=== PATIENT | male | born 1990 | race African-American/Black ===

== ENCOUNTER 2024-12-26 08:28 | Emergency (ER) | payer OTHER, SELFPAY ==
[2024-12-26] VITALS (14 sets, daily range): BP systolic 106–151; BP diastolic 59–80; PULSE 63–87; RESP 16–158; TEMP 36.6–36.9; O2SAT 95–99; BMI 38.2
[2024-12-26 08:53] LABS: Add Manual Diff / Slide Review NO; Basophils Absolute Auto 100 /uL (0-100); Eosinophils Absolute Auto 0 /uL (0-450); Eosinophils Percent Auto 0.8 % (2-4); Hematocrit 42.9 % (41-53); Hemoglobin 14.5 g/dL (13.5-17.5); Lymphocytes Absolute Auto 1500 /uL (1100-4500); Lymphocytes Percent Auto 27.7 % (25-40); Mean Corpuscular HGB Conc 33.8 % (30-36); Mean Corpuscular Hemoglobin 30.7 PG (26-34); Mean Corpuscular Volume 90.7 fL (80-100); Monocytes Absolute Auto 400 /uL (0-900); Monocytes Percent Auto 6.7 % (3-14); Neutrophils Absolute Auto 3400 /uL (1500-7000); Neutrophils Percent Auto 63.8 % (50-75); Platelet Count 221 X10^3/uL (150-400); Red Blood Cell Count 4.72 X10^6/uL (4.5-5.9); Red Cell Distribution Width 13.4 % (11.6-14.8); White Blood Cell Count 5.3 X10^3/uL (4.5-11.0)
[2024-12-26 09:07] LABS: Alanine Aminotransferase 46 IU/L (<50); Albumin 4.8 g/dL (3.5-5.0); Albumin Globulin Ratio 1.3 (1.0-2.8); Alkaline Phosphatase 53 U/L (38-126); Aspartate Aminotransferase 51 IU/L (17-59); BUN Creatinine Ratio 12.3 (6-22); Bilirubin Total 0.9 mg/dL (0.2-1.3); Blood Urea Nitrogen 13 mg/dL (9-20); Calcium 9.2 mg/dL (8.4-10.2); Carbon Dioxide 28 mmol/L (22-32); Chloride 103 mmol/L (98-107); Estimated Glomerular Filt Rate > 60 mL/min (>60); Globulin 3.7 g/dL (1.7-4.1); Glucose 91 mg/dL (70-99); HEMOLYSIS 37 (0-50); Lipase 100 U/L (23-300); Potassium 4.1 mmol/L (3.4-5.1); Sodium 141 mmol/L (137-145); Total Protein 8.5 g/dL (6.3-8.2)
--- NOTE | 2024-12-26 10:00 | ED.NAVMDI ---
HPI - Nausea/Vomiting/Diarrhea General Chief complaint: Nausea/Vomiting/Diarrhea Stated complaint: N/V/D X 2 days Time Seen by Provider: 12/26/24 09:59 Source: patient, RN notes reviewed and old records reviewed Mode of arrival: Ambulatory Limitations: no limitations History of Present Illness HPI Narrative: 34-year-old male history of prior laparoscopic umbilical hernia repair with mesh he was had some persistent abdominal pain and nausea had upper endoscopy in the last several months states was normal except for maybe some discoloration in his scheduled to have a colonoscopy in the future. Patient states he has had some increased abdominal discomfort for the past week, he was noted increased nausea as well. Patient states no fevers. No chest pain or pressure. Did has a little bit of reflux with a sour taste in his mouth this morning. Notes had nausea with a little bit of dry heaves and took some ondansetron at home. States he has been mildly constipated the past week but had some diarrhea like stools 3 times overnight. No black or bloody stools. Describes pain sort of periumbilical without radiation. No pain in his back or flank. Denies dysuria urgency or frequency. No testicular pain. States similar to his prior episodes. Patient states he was on Wegovy, taking Pepcid daily and ondansetron PRN. States he had prior laparoscopic umbilical hernia repair with mesh, denies any other abdominal surgeries. Denies any drug allergies. No tobacco, rare alcohol, no recreational drugs. Patient has av medical in the last several days. Related Data Allergies Allergy/AdvReac Type Severity Reaction Status Date / Time No Known Drug Allergies Allergy Verified 12/26/24 08:37 Review of Systems Review of Systems ROS Unobtainable: All systems reviewed & are unremarkable except as noted in HPI and below Exam Narrative Exam Narrative: GENERAL: Alert and oriented x three, male in mild distress HEENT: Head normocephalic, atraumatic, EOMI, pupils reactive, face symmetric, moist mucous membranes NECK: Supple, full range of motion CARDIOVASCULAR: Regular rate and rhythm without murmurs, rubs or gallops. RESPIRATORY: Breath sounds equal bilaterally, no wheezes rales or rhonchi. ABDOMEN: Soft, nondistended. Patient has some mild tenderness periumbilical, normoactive bowel sounds all 4 quadrants. No guarding or rebound, rigidity, no mass, no palpable hernias on exam. : No CVA tenderness bilaterally EXTREMITIES: Normal range of motion, no clubbing or edema. Neurovascularly intact NEUROLOGICAL: Cranial nerves II through XII grossly intact. Moving all extremities SKIN: Warm, dry, no petechiae, no rashes or lesions. Initial Vital Signs Initial Vital Signs: Vital Signs Pulse Oximetry 98 12/26/24 08:32 Course Orders Ordered: Discontinued Medications Sodium Chloride (Normal Saline 0.9%) 1,000 mls @ 1,000 mls/hr IV BOLUS ONE Stop: 12/26/24 11:09 Last Infusion: 12/26/24 12:07 Dose: Infused Documented By: Admin: 12/26/24 10:34 Dose: 1,000 mls/hr Documented By: LM Ketorolac Tromethamine (Ketorolac 30 Mg/Ml Vial) 15 mg IV NOW ONE Stop: 12/26/24 10:10 Last Admin: 12/26/24 10:33 Dose: 15 mg Documented By: LM Ondansetron HCl (Ondansetron 4 Mg/2 Ml Inj) 4 mg IV NOW PRN PRN Reason: Nausea And Vomiting Ondansetron HCl (Ondansetron 4 Mg Odt) 4 mg PO NOW PRN PRN Reason: Nausea And Vomiting Vital Signs Vital signs: Vital Signs - 8 hr 12/26/24 08:32 12/26/24 08:33 12/26/24 08:33 Temperature Pulse Rate 85 Respiratory Rate Blood Pressure 136/80 Pulse Oximetry 98 98 Oxygen Delivery Method 12/26/24 08:37 12/26/24 08:54 12/26/24 08:54 Temperature 97.8 F Pulse Rate 87 75 Respiratory Rate 16 Blood Pressure 136/80 117/64 Pulse Oximetry 97 98 Oxygen Delivery Method Room Air 12/26/24 09:00 12/26/24 09:00 12/26/24 09:30 Temperature Pulse Rate 71 79 Respiratory Rate Blood Pressure 115/63 Pulse Oximetry 95 97 Oxygen Delivery Method 12/26/24 09:30 12/26/24 10:00 12/26/24 10:00 Temperature Pulse Rate 69 Respiratory Rate Blood Pressure 106/61 107/59 L Pulse Oximetry 98 Oxygen Delivery Method 12/26/24 10:22 12/26/24 10:22 12/26/24 10:30 Temperature Pulse Rate 76 Respiratory Rate Blood Pressure 151/74 H 148/70 H Pulse Oximetry 98 Oxygen Delivery Method 12/26/24 10:30 Temperature Pulse Rate 68 Respiratory Rate Blood Pressure Pulse Oximetry 99 Oxygen Delivery Method MDM - Nausea/Vomiting/Diarrhea Lab Data 12/26/24 08:43 12/26/24 08:43 Labs: Lab Results 12/26/24 Range/Units 08:43 WBC 5.3 (4.5-11.0) X10^3/uL RBC 4.72 (4.5-5.9) X10^6/uL Hgb 14.5 (13.5-17.5) g/dL Hct 42.9 (41-53) % MCV 90.7 (80-100) fL MCH 30.7 (26-34) PG MCHC 33.8 (30-36) % RDW 13.4 (11.6-14.8) % Plt Count 221 (150-400) X10^3/uL Neut % (Auto) 63.8 (50-75) % Lymph % (Auto) 27.7 (25-40) % [place] % (Auto) 6.7 (3-14) % Eos % (Auto) 0.8 L (2-4) % Baso % (Auto) 1.0 (0-2) % Neut # (Auto) 3400 (6837-3714) /uL Lymph # (Auto) 1500 (2656-4517) /uL [place] # (Auto) 400 (0-900) /uL Eos # (Auto) 0 (0-450) /uL Baso # (Auto) 100 (0-100) /uL Sodium 141 (137-145) mmol/L Potassium 4.1 (3.4-5.1) mmol/L Chloride 103 (98-107) mmol/L Carbon Dioxide 28 (22-32) mmol/L BUN 13 (9-20) mg/dL Creatinine 1.06 (0.66-1.25) mg/dL Estimated GFR > 60 (>60) mL/min BUN/Creatinine Ratio 12.3 (6-22) Glucose 91 (70-99) mg/dL Calcium 9.2 (8.4-10.2) mg/dL Total Bilirubin 0.9 (0.2-1.3) mg/dL AST 51 (17-59) IU/L ALT 46 (<50) IU/L Alkaline Phosphatase 53 (38-126) U/L Total Protein 8.5 H (6.3-8.2) g/dL Albumin 4.8 (3.5-5.0) g/dL Globulin 3.7 (1.7-4.1) g/dL Albumin/Globulin Ratio 1.3 (1.0-2.8) Lipase 100 (23-300) U/L Urine Dip Bedside Urine Glucose Negative Bedside Urine Bilirubin - Negative Bedside Urine Ketone - Negative Urine Specific [place] 1.010 Bedside Urine Occult Blood - Negative Bedside Urine pH 7 Bedside Urine Protein - Negative Bedside Urine Urobilinogen - Negative Bedside Urine Nitrite - Negative Bedside Urine Leukocytes - Negative Esterase MDM Narrative Medical decision making narrative: CBC shows normal white count hemoglobin and platelets, chemistries chemistries are normal, total protein is 8.5. Point of care urine is negative CT abdomen pelvis no acute intra-abdominal abnormalities no significant abnormality along the anterior abdominal wall. Diastasis rectus is present. Patient fluids, and Toradol. 34-year-old male with a acute on chronic abdominal pain, patient is mildly tender on exam but in the area of his prior hernia repair. I do not palpate any obvious hernias but has had some nausea vomiting and diarrhea in the last 24 hours concern for potential obstructive causes patient has had acute on chronic pain worsening for the past week and after discussion felt CT abdomen pelvis was appropriate. Workup shows Discharge Plan Departure Patient Disposition: Home Clinical Impression: Abdominal pain, Nausea Instructions: DI for Abdominal Pain-Adult Activity Restrictions/Additional Instructions: Follow up with your primary care, I do think you would benefit from having your colonoscopy moved up if they are able to perform this sooner. Contacts included below for local general surgery who also do colonoscopies here at the hospital. Your labs and CT imaging did not show any major changes today. The only noted change was you have a diastasis recti on your imaging. Continue with a ondansetron 4 mg every 6 hours as needed. Please return for fevers, worsening abdominal back or flank pain, persistent vomiting, black or bloody stools, if you are not having any bowel movements or flatus vomiting present, passing out or other new or concerning changes. Referrals: Provider,Jose MONTIEL [Primary Care Provider, Family Practice] Brendon Mayes MD [Physician, General Surgery] Stand Alone Forms: Patient Portal/API, Work Release Note
--- NOTE | 2024-12-26 10:09 | DI.CT.S_ITS ---
PROCEDURE: CT ABDOMEN PELVIS W CON INDICATIONS: acute on chronic periumibilical, n/v/d, hx hernia/mesh repair TECHNIQUE: After the administration of intravenous contrast, axial sections acquired from the lung bases to the pubic symphysis. Coronal and sagittal reformats were performed. For radiation dose reduction, the following was used: automated exposure control, adjustment of mA and/or kV according to patient size. COMPARISON: None. FINDINGS: Image quality: Diagnostic. Lower Chest: No significant findings. ABDOMEN: Liver: No solid mass. Gallbladder: No radiopaque gallstones or wall thickening. Biliary ducts: No biliary dilation. Pancreas: No ductal dilation. Spleen: Size is within normal limits. Adrenal Glands: No adrenal nodules. Kidneys and Ureters: No hydronephrosis. No solid mass. No complex renal cystic lesion which requires follow up. Stomach and Bowel: Normal colonic caliber, without significant wall thickening. Normal appendix. Peritoneum: No abnormal intraperitoneal fluid. No free air. Ventral Wall: No significant ventral hernia. Diastasis rectus is present. Abdominal Nodes: No retroperitoneal or mesenteric adenopathy by size criteria. Vessels: Aorta and inferior vena cava are normal in size. PELVIS: Pelvic Organs: Unremarkable. Bladder: No bladder wall thickening, accounting for underdistention. Pelvic Nodes: No enlarged lymph nodes. Miscellaneous: No inguinal hernias are seen. Bones: No aggressive osseous abnormality. IMPRESSION: No acute intra-abdominal abnormalities. No significant abnormality along the anterior abdominal wall. Dictated by: Sam Menard M.D. on 12/26/2024 at 11:17 Approved by: Sam Menard M.D. on 12/26/2024 at 11:25
[2024-12-26] MEDS: KETOROLAC 30 MG/ML VIAL 15 MG IV (10:33)
[2024-12-26] MEDS: SODIUM CHLORIDE 0.9% 1,000 ML 1000 ML IV (10:34)
== END 2024-12-26 12:14 | disposition home or self-care (01) ==
PROVIDERS: Emergency Provider Emergency Medicine
DX: R10.9 Unspecified abdominal pain (principal); R11.0 Nausea
CPT/HCPCS: 36415; 74177; 80053; 81003; 83690; 85025; 96361; 96374; 99284; J1885; Q9967

== ENCOUNTER → 2025-02-02 07:11 | Outpatient (CLI) | payer OTHER, SELFPAY ==
--- NOTE | 2025-02-02 07:14 | DI.MRI.S_ITS ---
PROCEDURE: MR HEAD/BRAIN WO CON INDICATIONS: MIGRAINS TECHNIQUE: Noncontrast axial T1 spin echo, axial T2 fast spin echo, sagittal and axial FLAIR, coronal T2 fast spin echo, axial gradient echo, axial diffusion and ADC through the brain. COMPARISON: None. FINDINGS: Image quality: Diagnostic. CSF Spaces: Basal cisterns are patent. No extra-axial fluid collections. Ventricles are normal in size and shape. Brain: No intracranial masses or hemorrhage. Ro/white matter interface is normal. Brainstem appears normal. Diffusion-weighted images demonstrate no acute infarct. No chronic ischemic insults. Normal intravascular flow voids are present. Skull and face: Calvarium has normal marrow signal. Orbits appear normal. Sinuses: Sinuses and mastoids are clear. IMPRESSION: Unremarkable MRI evaluation of brain without acute intracranial abnormalities. No evidence for mass or mass effect. Dictated by: Mayo Naranjo M.D. on 02/02/2025 at 22:50 Approved by: Mayo Naranjo M.D. on 02/02/2025 at 22:51
== END ==
LOC: MRI 07:12
PROVIDERS: Referring Provider Nurse Practitioner Family; Visit Provider Nurse Practitioner Family
DX: R51.9 Headache, unspecified (principal)
CPT/HCPCS: 70551

== ENCOUNTER 2025-02-10 08:00 | Emergency (ER) | payer OTHER, SELFPAY ==
[2025-02-10] VITALS (12 sets, daily range): BP systolic 112–132; BP diastolic 60–74; PULSE 56–78; RESP 16; TEMP 36.6; O2SAT 97–100; BMI 38.7
--- NOTE | 2025-02-10 08:23 | EKG_ITS ---
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
[2025-02-10 08:32] LABS: Add Manual Diff / Slide Review NO; Hematocrit 43.0 % (41-53); Hemoglobin 14.3 g/dL (13.5-17.5); Lymphocytes Absolute Auto 1900 /uL (1100-4500); Mean Corpuscular HGB Conc 33.3 % (30-36); Mean Corpuscular Hemoglobin 30.3 PG (26-34); Mean Corpuscular Volume 90.9 fL (80-100); Platelet Count 242 X10^3/uL (150-400)
[2025-02-10 08:53] LABS: Alanine Aminotransferase 36 IU/L (<50); Albumin 4.7 g/dL (3.5-5.0); Albumin Globulin Ratio 1.3 (1.0-2.8); Alkaline Phosphatase 64 U/L (38-126); Blood Urea Nitrogen 16 mg/dL (9-20); Calcium 9.3 mg/dL (8.4-10.2); Carbon Dioxide 31 mmol/L (22-32); Chloride 103 mmol/L (98-107); Estimated Glomerular Filt Rate > 60 mL/min (>60); Globulin 3.5 g/dL (1.7-4.1); Glucose 86 mg/dL (70-99); HEMOLYSIS < 15 (0-50); Lipase 68 U/L (23-300); Potassium 3.8 mmol/L (3.4-5.1); Sodium 140 mmol/L (137-145); Total Protein 8.2 g/dL (6.3-8.2)
--- NOTE | 2025-02-10 09:30 | ED_ITS ---
HPI - Abdominal Pain General Chief Complaint: Abdominal Pain Stated Complaint: nausea, vomiting, abd pain Time Seen by Provider: 02/10/25 08:20 Source: patient Mode of arrival: Ambulatory History of Present Illness HPI narrative: 34-year-old male history of prior laparoscopic umbilical hernia repair with mesh he was had some persistent abdominal pain and nausea had upper endoscopy in the last several months states was normal except for maybe some discoloration in his scheduled to have a colonoscopy in the future. Patient states he has had some increased abdominal discomfort for the past month, he was noted increased nausea as well. Patient states no fevers. No chest pain or pressure. Did has a little bit of reflux with a sour taste in his mouth this morning. Notes had nausea with a little bit of dry heaves and took some ondansetron at home. States he has been mildly constipated the past week but had some diarrhea like stools 3 times overnight. No black or bloody stools. Describes pain sort of periumbilical without radiation. No pain in his back or flank. Denies dysuria urgency or frequency. No testicular pain. States similar to his prior episodes. Patient states he was on Wegovy, taking Pepcid daily and ondansetron PRN. States he had prior laparoscopic umbilical hernia repair with mesh, denies any other abdominal surgeries. Denies any drug allergies. No tobacco, rare alcohol, no recreational drugs. Patient has av medical in the last several days. He was seen in this ED approximately a month and a half ago with the exact same symptoms. Diastasis recti was the only results of the workup. Related Data Previous Rx's ?Medication ?Instructions ?Recorded cyclobenzaprine 7.5 mg tablet 7.5 mg PO TID PRN muscle spasm #20 02/10/25 tabs ondansetron 4 mg disintegrating 4 mg PO Q6H PRN nausea and 02/10/25 tablet vomiting #30 tabs Allergies Allergy/AdvReac Type Severity Reaction Status Date / Time No Known Drug Allergies Allergy Verified 02/10/25 08:10 Review of Systems Review of Systems ROS Unobtainable: All systems reviewed & are unremarkable except as noted in HPI and below Patient History Social History Smoking Status: Never smoker Smoking Status: Never smoker Exam Narrative Exam Narrative: General: Patient appears to be in no acute distress, acting appropriately Head: normocephalic, atraumatic, HEENT: Pupils equal round reactive, eyes tracking well, neck supple, no JVD Heart: regular rate and rhythm, no murmurs, rubs, or gallops heard Lungs: clear to auscultation, no adventitious sounds Abdomen: soft , midly tender to generalized palpation , nondistended, positive bowel sounds Neurological: no focal neurological signs, moving all extremities well, alert and oriented x3, Psych: good judgment ,good insight, mood is normal. Initial Vital Signs Initial Vital Signs: Vital Signs Pulse Rate 71 02/10/25 08:09 Respiratory Rate 16 02/10/25 08:09 Blood Pressure 132/70 02/10/25 08:09 Pulse Oximetry 97 02/10/25 08:09 Oxygen Delivery Method Room Air 02/10/25 08:09 Course Course Course Narrative: Patient feeling a little better after some Toradol and Zofran. Orders Ordered: ED Orders 02/10/25 08:16 EKG-12 Lead Stat 02/10/25 08:25 Complete Blood Count AUTO DIFF Stat Comprehensive Metabolic Panel Stat Lipase Stat 02/10/25 09:39 CT abdomen pelvis w con Stat Ondansetron HCl (Ondansetron 4 Mg/2 Ml Inj) 4 mg IV NOW PRN PRN Reason: Nausea And Vomiting Ondansetron HCl (Ondansetron 4 Mg Odt) 4 mg PO NOW PRN PRN Reason: Nausea And Vomiting Discontinued Medications Ketorolac Tromethamine (Ketorolac 30 Mg/Ml Vial) 15 mg IV NOW ONE Stop: 02/10/25 10:27 Last Admin: 02/10/25 10:41 Dose: 15 mg Documented By: Ondansetron HCl (Ondansetron 4 Mg/2 Ml Inj) 4 mg IV NOW ONE Stop: 02/10/25 10:27 Last Admin: 02/10/25 10:40 Dose: 4 mg Documented By: Vital Signs Vital signs: Vital Signs - 8 hr 02/10/25 08:09 02/10/25 08:39 02/10/25 08:40 Pulse Rate 71 76 68 Respiratory Rate 16 Blood Pressure 132/70 Pulse Oximetry 97 97 99 Oxygen Delivery Method Room Air 02/10/25 08:40 02/10/25 09:00 02/10/25 09:00 Pulse Rate 61 Respiratory Rate Blood Pressure 129/70 122/69 Pulse Oximetry 100 Oxygen Delivery Method 02/10/25 09:30 02/10/25 09:31 02/10/25 09:31 Pulse Rate 65 68 Respiratory Rate Blood Pressure 130/74 Pulse Oximetry 100 100 Oxygen Delivery Method MDM - Abdominal Pain Differential Diagnosis Differential diagnosis: Likely abdominal pain, diverticulitis, small bowel obstruction and other Lab Data 02/10/25 08:25 02/10/25 08:25 Labs: Lab Results 02/10/25 Range/Units 08:25 WBC 5.5 (4.5-11.0) X10^3/uL RBC 4.72 (4.5-5.9) X10^6/uL Hgb 14.3 (13.5-17.5) g/dL Hct 43.0 (41-53) % MCV 90.9 (80-100) fL MCH 30.3 (26-34) PG MCHC 33.3 (30-36) % RDW 13.2 (11.6-14.8) % Plt Count 242 (150-400) X10^3/uL Neut % (Auto) 54.4 (50-75) % Lymph % (Auto) 34.9 (25-40) % [place] % (Auto) 9.1 (3-14) % Eos % (Auto) 1.0 L (2-4) % Baso % (Auto) 0.6 (0-2) % Neut # (Auto) 3000 (0865-7346) /uL Lymph # (Auto) 1900 (3775-5535) /uL [place] # (Auto) 500 (0-900) /uL Eos # (Auto) 100 (0-450) /uL Baso # (Auto) 0 (0-100) /uL Sodium 140 (137-145) mmol/L Potassium 3.8 (3.4-5.1) mmol/L Chloride 103 (98-107) mmol/L Carbon Dioxide 31 (22-32) mmol/L BUN 16 (9-20) mg/dL Creatinine 1.05 (0.66-1.25) mg/dL Estimated GFR > 60 (>60) mL/min BUN/Creatinine Ratio 15.2 (6-22) Glucose 86 (70-99) mg/dL Calcium 9.3 (8.4-10.2) mg/dL Total Bilirubin 0.8 (0.2-1.3) mg/dL AST 42 (17-59) IU/L ALT 36 (<50) IU/L Alkaline Phosphatase 64 (38-126) U/L Total Protein 8.2 (6.3-8.2) g/dL Albumin 4.7 (3.5-5.0) g/dL Globulin 3.5 (1.7-4.1) g/dL Albumin/Globulin Ratio 1.3 (1.0-2.8) Lipase 68 (23-300) U/L Point of care testing: Urine Dip Bedside Urine Glucose Negative Bedside Urine Bilirubin - Negative Bedside Urine Ketone - Negative Urine Specific [place] 1.005 Bedside Urine Occult Blood - Negative Bedside Urine pH 7.5 Bedside Urine Protein - Negative Bedside Urine Urobilinogen - Negative Bedside Urine Nitrite - Negative Bedside Urine Leukocytes - Negative Esterase MDM Narrative Medical decision making narrative: Patient resting comfortably after some Toradol and some Zofran. Most likely dealing with his diastasis again. Suggested using an abdominal binder and will follow up for worsening pain. Also given some muscle relaxants to be used as needed. Discharge Plan Departure Patient Disposition: Home Clinical Impression: Diastasis recti Instructions: DI for Abdominal Pain-Adult Activity Restrictions/Additional Instructions: Take meds as prescribed. Use abdominal binder when needed. Follow up if symptoms worsen. Prescriptions: New ondansetron 4 mg tablet,disintegrating 4 mg PO Q6H PRN (Reason: nausea and vomiting) Qty: 30 0RF cyclobenzaprine 7.5 mg tablet 7.5 mg PO TID PRN (Reason: muscle spasm) Qty: 20 0RF Referrals: ProviderJose [Primary Care Provider, Family Practice] Stand Alone Forms: Patient Portal/API, Work Release Note
--- NOTE | 2025-02-10 09:39 | DI.CT.S_ITS ---
PROCEDURE: CT ABDOMEN PELVIS W CON INDICATIONS: abdominal pain TECHNIQUE: After the administration of intravenous contrast, axial sections acquired from the lung bases to the pubic symphysis. Coronal and sagittal reformats were performed. For radiation dose reduction, the following was used: automated exposure control, adjustment of mA and/or kV according to patient size. COMPARISON: [facility], CT, CT ABDOMEN PELVIS W CON, 12/26/2024, 10:15. FINDINGS: Image quality: Diagnostic. Lower Chest: No significant findings. ABDOMEN: Liver: No solid mass. Gallbladder: No radiopaque gallstones or wall thickening. Biliary ducts: No biliary dilation. Pancreas: No ductal dilation. Spleen: Size is within normal limits. Adrenal Glands: No adrenal nodules. Kidneys and Ureters: No hydronephrosis. No solid mass. No complex renal cystic lesion which requires follow up. Stomach and Bowel: Normal colonic caliber, without significant wall thickening. No dilated loops of small bowel are seen. A normal appendix is partially seen, as on series 3, image 53. No focal right lower quadrant inflammatory change can be seen. Peritoneum: No abnormal intraperitoneal fluid. No free air. Ventral Wall: No significant ventral hernia. Abdominal Nodes: No retroperitoneal or mesenteric adenopathy by size criteria. Vessels: Aorta and inferior vena cava are normal in size. PELVIS: Pelvic Organs: Unremarkable. Bladder: No bladder wall thickening, accounting for underdistention. Pelvic Nodes: No enlarged lymph nodes. Miscellaneous: No inguinal hernias are seen. Bones: No aggressive osseous abnormality. IMPRESSION: No imaging explanation is found for this patient's presenting symptoms. Dictated by: Arnel Pacheco M.D. on 02/10/2025 at 9:21 Approved by: Arnel Pacheco M.D. on 02/10/2025 at 9:23
[2025-02-10] MEDS: ONDANSETRON 4 MG/2 ML INJ IV (10:40)
[2025-02-10] MEDS: KETOROLAC 30 MG/ML VIAL 15 MG IV (10:41)
== END 2025-02-10 11:23 | disposition home or self-care (01) ==
PROVIDERS: Emergency Provider Family Medicine
DX: M62.08 Separation of muscle (nontraumatic), other site (principal); R11.0 Nausea; Z98.890 Other specified postprocedural states
CPT/HCPCS: 36415; 74177; 80053; 81003; 83690; 85025; 93005; 96374; 96375; 99284; J1885; J2405; Q9967